=== PATIENT | male | born 1950 | race Caucasian/White ===

== ENCOUNTER 2021-04-04 13:03 | Emergency (ER) | payer MEDICARE, OTHER ==
[~2021-04-04] VITALS: Ht 193 cm; Wt 127.3 kg
[2021-04-04 13:26] VITALS: BP 124/62
== END 2021-04-04 15:19 | disposition left against medical advice (07) ==
LOC: ER 13:05
DX: U07.1 COVID-19 (principal); R53.1 Weakness; R53.83 Other fatigue; R11.0 Nausea; I10 Essential (primary) hypertension
CPT/HCPCS: 99281

== ENCOUNTER 2021-04-05 13:12 | Emergency (ER) | payer MEDICARE, OTHER ==
[~2021-04-05] VITALS: Ht 182.9 cm; Wt 127.3 kg
[2021-04-05] MEDS ORDERED: CASIRIVIMAB/IMDEVIMAB inject. 10 ML in normal saline 100ml IV soln 100 ML IV ONE (13:45)
[2021-04-05 14:27] LABS: BASOPHILS % (AUTO) 0.2 % (0-1); EOSINOPHILS % (AUTO) 0 % (0-6); HEMATOCRIT 46.3 % (42.0-52.0); HEMOGLOBIN 16.1 g/dl (14.0-17.9); LYMPHOCYTES % (AUTO) 17.5 % (21-51); MEAN CORPUSCULAR HEMOGLOBIN 29.8 PG (27.0-31.0); MEAN CORPUSCULAR HGB CONC 34.7 g/dL (33.0-36.5); MEAN PLATELET VOLUME 9.4 FL (7.4-10.4); MONOCYTES # (AUTO) 0.6 X10'3 (0-0.9); MONOCYTES % (AUTO) 10.6 % (2-12); NEUTROPHILS # (AUTO) 4.1 X10'3 (1.8-7.7); NEUTROPHILS % (AUTO) 71.7 % (42-75); PLATELET COUNT 106 X10'3 (140-440); RED BLOOD COUNT 5.38 X10'6 (4.70-6.10); RED CELL DISTRIBUTION WIDTH 13.9 % (11.5-14.5); WHITE BLOOD COUNT 5.7 X10'3 (4.5-11.0)
[2021-04-05 14:40] LABS: ALANINE AMINOTRANSFERASE 40 U/L (12-78); ALBUMIN 3.5 G/DL (3.4-5.0); ALBUMIN/GLOBULIN RATIO 0.9 (1.1-1.5); ALKALINE PHOSPHATASE 135 IU/L (46-116); ANION GAP 10 (8-16); ASPARTATE AMINO TRANSFERASE 38 U/L (10-37); BILIRUBIN,TOTAL 1.7 MG/DL (0.1-1.0); BLOOD UREA NITROGEN 21 MG/DL (7-18); BUN/CREATININE RATIO 16.9 (5.4-32.0); CALCIUM 7.7 MG/DL (8.5-10.1); CHLORIDE 101 MMOL/L (99-107); CREATININE 1.24 MG/DL (0.60-1.10); GLUCOSE 131 MG/DL (70-104); POTASSIUM 3.9 MMOL/L (3.5-5.1); SODIUM 133 MMOL/L (135-145); TOTAL CARBON DIOXIDE 22.3 MMOL/L (24-32); TOTAL PROTEIN 7.4 G/DL (6.4-8.2); eGFR 58 ML/MIN
[2021-04-05 14:59] VITALS: BP 132/75
[2021-04-06] MEDS ORDERED: NO HOME MEDS (03:19)
[2021-04-06] MEDS ORDERED: DEC4T PO (10:37)
== END 2021-04-05 15:13 | disposition home or self-care (01) ==
LOC: ER 13:13
DX: U07.1 COVID-19 (principal); R19.7 Diarrhea, unspecified; R53.83 Other fatigue; R06.02 Shortness of breath; R53.1 Weakness; R11.0 Nausea
CPT/HCPCS: 36415; 71045; 80053; 85025; 99284; M0243; Q0244

== ENCOUNTER 2021-04-06 00:28 | Inpatient (IN) | payer MEDICARE, OTHER ==
[~2021-04-06] VITALS: Ht 193 cm; Wt 138.0 kg
[2021-04-06] MEDS ORDERED: dexamethasone sod phosphate 10mg/ml inj IV STA (01:35)
[2021-04-06] MEDS ORDERED: acetaminophen 325mg tablet PO ONE (01:40)
[2021-04-06] MEDS ORDERED: magnesium Cl slow-release 64mg tablet PO PRN (02:40)
[2021-04-06] MEDS ORDERED: magnesium hydroxide 30ml (MOM) UD suspension PO PRN (02:40)
[2021-04-06] MEDS ORDERED: magnesium 2GM in 50ml NS 50 ML IV PRN (02:40)
[2021-04-06] MEDS ORDERED: potassium Cl 20 mEq SR tablet PO PRN ×2 (02:40)
[2021-04-06] MEDS ORDERED: mag hydrox/Alum hydrox/simeth 30ml oral suspension PO PRN (02:40)
[2021-04-06] MEDS ORDERED: acetaminophen 325mg tablet PO PRN ×2 (02:40)
[2021-04-06] MEDS ORDERED: LORazepam 1 MG tablet PO PRN (02:40)
[2021-04-06] MEDS ORDERED: LORazepam 2 mg/ml vial IV PRN (02:40)
[2021-04-06] MEDS ORDERED: magnesium 4gm in 100ml NS 100 ML IV PRN (02:40)
[2021-04-06] MEDS ORDERED: ondansetron/PF 4mg/2ml inj IV PRN (02:40)
[2021-04-06] MEDS ORDERED: potassium Cl 40MEQ/1/2NS 520ml 520 ML IV PRN ×2 (02:40)
[2021-04-06] MEDS ORDERED: NO HOME MEDS (03:19)
--- NOTE | 2021-04-06 03:25 | NUR ---
pt daughter alexandra called to check the patient her father she can be reached at [phone] her sister davina has the patients phone
[2021-04-06 05:19] VITALS: BP 122/65
--- NOTE | 2021-04-06 05:32 | NUR ---
report recieved from miguelito LEROY RN at 0440, patient arrives to unit at 0500 in [place]. skin check performed with nati gibson. no outstanding findings. patient is diaphoretci vss temp 97.5 122/65 68 16 100% on RA denies pain. patient is depressed and tired , falling asleep in mid interview. interview deferred for later . prior to dozing off patient given snacks, states that he has not eaten in three days. courtney mejia rn
[2021-04-06 07:00] VITALS: BP 131/78
[2021-04-06] MEDS: docusate sod 100mg capsule PO SCH ×2 (08:00→18:57)
[2021-04-06] MEDS: K and/or MAG REPLACEMENT MC SCH ×2 (08:00→19:07)
[2021-04-06] MEDS: dexamethasone 4mg/ml inj IV SCH ×3 (08:40→18:56)
--- NOTE | 2021-04-06 10:28 | NUR ---
Malnutrition consult: Pt reports 2-13 lb wt loss with decreased appetite per malnutrition risk screen with RN. No recent scaled wt hx in EMR, current scaled wt is 150% IBW. Pt currently on a regular diet, pending documentation of PO intake. Pt with no documented decrease in muscle strength or significant edema and appears well developed well nourished per ED report. Likely that pt with some changes in appetite/PO intake r/t COVID however currently lacks a minimum of two criteria for malnutrition. Will continue to follow. Addendum: 04/06/21 at [address] Amended: Links added.
[2021-04-06] MEDS ORDERED: DEC4T PO (10:37)
[2021-04-06 10:47] LABS: ALBUMIN 3.2 G/DL (3.4-5.0); ANION GAP 7 (8-16); BLOOD UREA NITROGEN 34 MG/DL (7-18); BUN/CREATININE RATIO 14.3 (5.4-32.0); CALCIUM 7.6 MG/DL (8.5-10.1); CHLORIDE 97 MMOL/L (99-107); CREATININE 2.38 MG/DL (0.60-1.10); GLUCOSE 208 MG/DL (70-104); POTASSIUM 3.8 MMOL/L (3.5-5.1); SODIUM 129 MMOL/L (135-145); TOTAL CARBON DIOXIDE 24.8 MMOL/L (24-32); eGFR 27 ML/MIN
--- NOTE | 2021-04-06 10:55 | NUR ---
PAGER ID: [phone] MESSAGE: Sondra [phone]- Bon Lin- he did not eat breakfast until late, has not yet received insulin. BS 230. Scheduled to recheck and treat at lunch 1200. Is it too late to admin insulin? Please advise, thanks
[2021-04-06 11:00] VITALS: BP 114/52
[2021-04-06 11:00] LABS: EOSINOPHILS % (AUTO) 0 % (0-6); HEMOGLOBIN 15.6 g/dl (14.0-17.9); PLATELET COUNT 101 X10'3 (140-440); RED CELL DISTRIBUTION WIDTH 14.2 % (11.5-14.5)
[2021-04-06 11:02] LABS: BASOPHILS % (AUTO) 0.3 % (0-1); LYMPHOCYTES # (AUTO) 1.1 X10'3 (1.1-4.8); LYMPHOCYTES % (AUTO) 13.5 % (21-51); MEAN CORPUSCULAR HEMOGLOBIN 30.5 PG (27.0-31.0); MEAN CORPUSCULAR HGB CONC 34.7 g/dL (33.0-36.5); MEAN CORPUSCULAR VOLUME 87.9 FL (78-98); MEAN PLATELET VOLUME 10.6 FL (7.4-10.4); MONOCYTES # (AUTO) 0.6 X10'3 (0-0.9); MONOCYTES % (AUTO) 6.8 % (2-12); NEUTROPHILS # (AUTO) 6.5 X10'3 (1.8-7.7); NEUTROPHILS % (AUTO) 79.4 % (42-75); RED BLOOD COUNT 5.12 X10'6 (4.70-6.10); WHITE BLOOD COUNT 8.1 X10'3 (4.5-11.0)
--- NOTE | 2021-04-06 13:45 | NUR ---
PAGER ID: [phone] MESSAGE: Sondra 8263Bon Rai- he and his family are appealing the discharge. MARI. Addendum: 04/06/21 at 1443 by Analy Molina RN spoke with daughter Sharon at length. Explained [facility] care dc appeal process and gave her the phone number to call. Explained why her father is being discharged. The family and the pt have expressed fears re dc because the pt was dc from [facility] then at home 2 days later. This was only day before yesterday. Sharon states they grieving and fearful to lose another parent so close together. I hung up the phone and Dr De Leon called back to say that she is holding the dc for now due to pt decreased kidney function. He will need IVF, and orders reflect this. I called Sharon to let her know and she is pleased with this. Will continue to monitor situation.
[2021-04-06 15:00] VITALS: BP 124/73
[2021-04-06] MEDS: normal saline 1000ml 1,000 ML IV SCH ×2 (15:25→23:41)
--- NOTE | 2021-04-06 15:54 | NUR ---
SENT PAGE PAGER ID: [phone] MESSAGE: CY Quezada, QUIANA DINORAH. SOME OF PT'S FAMILY SAYS HE USES PAP MACHINE AT HOME. PT HAD 1200 BLOOD SUGAR OF 194, ACHS ACCUCHECK ORDERS BUT NO HUMALOG ORDER OR AC1 RESULTS. THANK YOU. CHARLES Redman [id number]
--- NOTE | 2021-04-06 15:57 | NUR ---
PAGE SENT CY Quezada, QUIANA COPELAND, SOME PT'S FAMILY REPORTS THAT PT HAS A PAP MACHINE AT HOME. NOTIFIED. THANK YOU, CHARLES
[2021-04-06] MEDS ORDERED: MESSAGE TO PHARMACY PO ONE (16:10)
[2021-04-06] MEDS ORDERED: dextrose 50%-water 50ml dispensing syringe IV PRN ×2 (16:10)
[2021-04-06] MEDS ORDERED: glucagon, human recombinant 1mg kit SUBCUT PRN (16:10)
[2021-04-06] MEDS ORDERED: dextrose ORAL solution 15 GM/59 ML bottle PO PRN ×2 (16:10)
--- NOTE | 2021-04-06 18:00 | NUR ---
Patient in room COVID 04. I have received report from radames gibson and had the opportunity to ask questions and assume patient care.
--- NOTE | 2021-04-06 18:31 | NUR ---
Problems reprioritized. Patient report given, questions answered & plan of care reviewed with BUSHRA SARGENT.
[2021-04-06] MEDS: insulin Lispro (HumaLOG) vial - multi-dose SQ SCH (19:00)
[2021-04-06 20:00] VITALS: BP 152/42
[2021-04-06] MEDS ORDERED: insulin glargine (Lantus) pen - multi-dose SQ SCH (21:00)
[2021-04-06] MEDS ORDERED: temazepam 15mg capsule PO PRN (21:00)
[2021-04-06 22:00] VITALS: BP 127/62
--- NOTE | 2021-04-06 23:53 | NUR ---
patient reports that he takes clindaymcin 300mg three times a day at home, prescribed by his dentist. patient reports that he takes hctz 20mg/12.5mg. will notify
[2021-04-07 02:00] VITALS: BP 136/72
--- NOTE | 2021-04-07 04:54 | NUR ---
MD Kingsley notified that patient states that he is taking hctz 20-12.5mg at home for blood pressure once a day. recent bp 156/89mmHg at 0300. also notified that patient is requesting eye drops and pain medication stronger for his back pain caused by past injuries. patient staes that he takes norcos and oxys at home. MD conti states that patient is stable on room air and should be discharged soon. Md states to endorse to daytime MD De Leon. patient made aware. verbalizes understanding
[2021-04-07 08:14] LABS: BASOPHILS % (AUTO) 0 % (0-1); EOSINOPHILS % (AUTO) 0 % (0-6); HEMATOCRIT 43.8 % (42.0-52.0); LYMPHOCYTES # (AUTO) 1.1 X10'3 (1.1-4.8); LYMPHOCYTES % (AUTO) 13.1 % (21-51); MEAN CORPUSCULAR HEMOGLOBIN 29.8 PG (27.0-31.0); MEAN CORPUSCULAR HGB CONC 34.1 g/dL (33.0-36.5); MEAN CORPUSCULAR VOLUME 87.2 FL (78-98); MEAN PLATELET VOLUME 10.6 FL (7.4-10.4); MONOCYTES # (AUTO) 0.5 X10'3 (0-0.9); MONOCYTES % (AUTO) 5.9 % (2-12); NEUTROPHILS # (AUTO) 6.9 X10'3 (1.8-7.7); PLATELET COUNT 126 X10'3 (140-440); RED BLOOD COUNT 5.03 X10'6 (4.70-6.10); WHITE BLOOD COUNT 8.5 X10'3 (4.5-11.0)
[2021-04-07 08:22] VITALS: BP 142/78
[2021-04-07 08:38] LABS: ALANINE AMINOTRANSFERASE 37 U/L (12-78); ALBUMIN 2.9 G/DL (3.4-5.0); ALBUMIN/GLOBULIN RATIO 0.8 (1.1-1.5); ALKALINE PHOSPHATASE 116 IU/L (46-116); ANION GAP 8 (8-16); ASPARTATE AMINO TRANSFERASE 42 U/L (10-37); BILIRUBIN,TOTAL 0.9 MG/DL (0.1-1.0); BLOOD UREA NITROGEN 27 MG/DL (7-18); BUN/CREATININE RATIO 22.3 (5.4-32.0); CALCIUM 8.1 MG/DL (8.5-10.1); CHLORIDE 104 MMOL/L (99-107); CREATININE 1.21 MG/DL (0.60-1.10); GLUCOSE 180 MG/DL (70-104); MAGNESIUM 2.6 MG/DL (1.5-2.4); POTASSIUM 3.9 MMOL/L (3.5-5.1); SODIUM 137 MMOL/L (135-145); TOTAL CARBON DIOXIDE 25.2 MMOL/L (24-32); TOTAL PROTEIN 6.6 G/DL (6.4-8.2); eGFR 59 ML/MIN
[2021-04-07] MEDS: dexamethasone 4mg/ml inj IV SCH (09:06)
[2021-04-07] MEDS: docusate sod 100mg capsule PO SCH (09:07)
[2021-04-07] MEDS: insulin Lispro (HumaLOG) vial - multi-dose SQ SCH (09:12)
[2021-04-07 11:47] VITALS: BP 142/78
--- NOTE | 2021-04-07 14:13 | NUR ---
PAGER ID: [phone] MESSAGE: Damien HerronBon His A1C is 6.3. He needs a scrip for Glucometer, lancets, and strips. Yelitza [id number]
== END 2021-04-07 15:52 | disposition home or self-care (01) | DRG 177 ==
LOC: ER 00:28 → COVID IP 02:43
PROVIDERS: ADMIT Internal Medicine; ATTEND Internal Medicine
DX: U07.1 COVID-19 (principal); N17.0 Acute kidney failure with tubular necrosis; R74.8 Abnormal levels of other serum enzymes; D69.6 Thrombocytopenia, unspecified; I12.9 Hypertensive chronic kidney disease with stage 1 through stage 4 chronic kidney disease, or unspecified chronic kidney disease; N18.30 Chronic kidney disease, stage 3 unspecified
CPT/HCPCS: 36415; 71045; 80048; 80053; 82948; 83036; 83605; 83735; 85025; 85610; 87040; 87081; 96374; 97110; 97161; 97530; 99281; 99284; 99285; G0378; J1100; J1815; J7030; M0243; Q0244

== ENCOUNTER 2021-04-09 02:39 | Emergency (ER) | payer MEDICARE, OTHER ==
[~2021-04-09] VITALS: Ht 193 cm; Wt 123.6 kg
[~2021-04-09 02:39] MED LIST: DEC4T PO
[2021-04-09] MEDS ORDERED: DEXA6TAB6 PO ×3 (02:56→02:58)
[2021-04-09] MEDS ORDERED: dexamethasone sod phosphate 10mg/ml inj IV STA (03:07)
[2021-04-09] MEDS ORDERED: aspirin 81mg tab.chew PO ONE (03:10)
[2021-04-09] MEDS ORDERED: CASIRIVIMAB/IMDEVIMAB inject. 10 ML in normal saline 100ml IV soln 100 ML IV ONE (03:10)
--- NOTE | 2021-04-09 03:14 | NUR ---
pt reports feeling depressed after losing his last week. He feels guilty, denies SI, reports feeling very dipressed, he has a good support system but has not sought any counceling, he reports not taking care of himself at home and is not compliant with medicaitons
[2021-04-09 03:17] LABS: BASOPHILS % (AUTO) 0.1 % (0-1); EOSINOPHILS % (AUTO) 0 % (0-6); HEMATOCRIT 44.3 % (42.0-52.0); HEMOGLOBIN 15.2 g/dl (14.0-17.9); LYMPHOCYTES # (AUTO) 0.9 X10'3 (1.1-4.8); LYMPHOCYTES % (AUTO) 12.1 % (21-51); MEAN CORPUSCULAR HEMOGLOBIN 29.6 PG (27.0-31.0); MEAN CORPUSCULAR HGB CONC 34.3 g/dL (33.0-36.5); MEAN CORPUSCULAR VOLUME 86.3 FL (78-98); MEAN PLATELET VOLUME 9.9 FL (7.4-10.4); MONOCYTES # (AUTO) 0.6 X10'3 (0-0.9); MONOCYTES % (AUTO) 7.7 % (2-12); NEUTROPHILS # (AUTO) 6.1 X10'3 (1.8-7.7); NEUTROPHILS % (AUTO) 80.1 % (42-75); PLATELET COUNT 169 X10'3 (140-440); RED BLOOD COUNT 5.13 X10'6 (4.70-6.10); RED CELL DISTRIBUTION WIDTH 13.8 % (11.5-14.5); WHITE BLOOD COUNT 7.6 X10'3 (4.5-11.0)
[2021-04-09 03:25] LABS: D-DIMER 0.33 MG/L FEU (0-0.50)
[2021-04-09 03:33] LABS: ALANINE AMINOTRANSFERASE 159 U/L (12-78); ALBUMIN 3.1 G/DL (3.4-5.0); ALBUMIN/GLOBULIN RATIO 0.8 (1.1-1.5); ALKALINE PHOSPHATASE 108 IU/L (46-116); ANION GAP 7 (8-16); ASPARTATE AMINO TRANSFERASE 118 U/L (10-37); BLOOD UREA NITROGEN 24 MG/DL (7-18); BUN/CREATININE RATIO 23.3 (5.4-32.0); CALCIUM 8.1 MG/DL (8.5-10.1); CHLORIDE 104 MMOL/L (99-107); CREATININE 1.03 MG/DL (0.60-1.10); GLUCOSE 162 MG/DL (70-104); SODIUM 137 MMOL/L (135-145); TOTAL CARBON DIOXIDE 25.7 MMOL/L (24-32); TOTAL PROTEIN 6.8 G/DL (6.4-8.2); eGFR 72 ML/MIN
[2021-04-09 03:36] LABS: MAGNESIUM 2.5 MG/DL (1.5-2.4); TROPONIN I < 0.04 NG/ML (0.0-0.05)
[2021-04-09 05:08] VITALS: BP 117/64
== END 2021-04-09 05:00 | disposition home or self-care (01) ==
LOC: ER 02:39
DX: U07.1 COVID-19 (principal); J12.82 Pneumonia due to coronavirus disease 2019; I10 Essential (primary) hypertension; Z79.899 Other long term (current) drug therapy
CPT/HCPCS: 36415; 71045; 80053; 83735; 83880; 84484; 85025; 85379; 93005; 99285; M0243; Q0244

== ENCOUNTER 2021-05-09 12:21 | Inpatient (IN) | payer MEDICARE, OTHER ==
[~2021-05-09] VITALS: Ht 193 cm; Wt 122.7 kg
[~2021-05-09 12:21] MED LIST changes: -DEC4T PO; +DEXA6TAB6 PO
[2021-05-09 12:57] LABS: BASOPHILS # (AUTO) 0.1 X10'3 (0-0.2); LYMPHOCYTES # (AUTO) 2.4 X10'3 (1.1-4.8); MEAN CORPUSCULAR HEMOGLOBIN 29.5 PG (27.0-31.0); MONOCYTES # (AUTO) 0.5 X10'3 (0-0.9); WHITE BLOOD COUNT 6.4 X10'3 (4.5-11.0)
[2021-05-09 12:58] LABS: BASOPHILS % (AUTO) 1.4 % (0-1); EOSINOPHILS # (AUTO) 0.1 X10'3 (0-0.9); EOSINOPHILS % (AUTO) 0.9 % (0-6); HEMOGLOBIN 13.7 g/dl (14.0-17.9); MEAN CORPUSCULAR HGB CONC 33.4 g/dL (33.0-36.5); MEAN CORPUSCULAR VOLUME 88.3 FL (78-98); MEAN PLATELET VOLUME 9.2 FL (7.4-10.4); MONOCYTES % (AUTO) 7.6 % (2-12); NEUTROPHILS # (AUTO) 3.4 X10'3 (1.8-7.7); NEUTROPHILS % (AUTO) 53.1 % (42-75); PLATELET COUNT 231 X10'3 (140-440); RED BLOOD COUNT 4.64 X10'6 (4.70-6.10); RED CELL DISTRIBUTION WIDTH 14.7 % (11.5-14.5)
[2021-05-09 13:01] LABS: ALANINE AMINOTRANSFERASE 48 U/L (12-78); ALBUMIN 3.4 G/DL (3.4-5.0); ALBUMIN/GLOBULIN RATIO 0.9 (1.1-1.5); ALKALINE PHOSPHATASE 135 IU/L (46-116); ANION GAP 11 (8-16); ASPARTATE AMINO TRANSFERASE 29 U/L (10-37); BILIRUBIN,TOTAL 2.4 MG/DL (0.1-1.0); BLOOD UREA NITROGEN 16 MG/DL (7-18); BUN/CREATININE RATIO 9.1 (5.4-32.0); CHLORIDE 107 MMOL/L (99-107); CREATININE 1.75 MG/DL (0.60-1.10); GLUCOSE 154 MG/DL (70-104); POTASSIUM 3.3 MMOL/L (3.5-5.1); SODIUM 143 MMOL/L (135-145); TOTAL CARBON DIOXIDE 25.1 MMOL/L (24-32); TOTAL PROTEIN 7.3 G/DL (6.4-8.2); eGFR 39 ML/MIN
[2021-05-09] MEDS: aspirin 81mg tab.chew PO ONE ×2 (13:02→15:23)
[2021-05-09] MEDS ORDERED: etomidate 2mg/ml inj. IV ONE (13:05)
[2021-05-09] MEDS ORDERED: iohexol 350MG/ML 100ml bottle IV ONE (13:25)
[2021-05-09] MEDS ORDERED: enoxaparin 100mg/ml syringe SUBCUT ONE (13:50)
[2021-05-09] MEDS ORDERED: metoprolol tartrate 1mg/ml inj IV ONE (13:50)
[2021-05-09] MEDS ORDERED: normal saline 1000ML IV soln IVB ONE (14:05)
[2021-05-09] MEDS ORDERED: LISI1TAB51 PO (14:40)
[2021-05-09] MEDS ORDERED: ASPI-611 PO (14:40)
[2021-05-09] MEDS ORDERED: diltiazem 5mg/ml 5ml inj. IV ONE (14:40)
[2021-05-09] MEDS: diltiazem-NS 100mg/100ml 100 ML IV SCH (15:23)
[2021-05-09] MEDS ORDERED: potassium Cl 40MEQ/1/2NS 520ml 520 ML IV PRN ×2 (16:35)
[2021-05-09] MEDS ORDERED: magnesium Cl slow-release 64mg tablet PO PRN (16:35)
[2021-05-09] MEDS ORDERED: magnesium 4gm in 100ml NS 100 ML IV PRN (16:35)
[2021-05-09] MEDS ORDERED: HYDROcodone/acetaminophen 5mg/325mg tablet PO PRN (16:35)
[2021-05-09] MEDS ORDERED: magnesium 2GM in 50ml NS 50 ML IV PRN (16:35)
[2021-05-09] MEDS ORDERED: ondansetron/PF 4mg/2ml inj IV PRN (16:35)
[2021-05-09] MEDS ORDERED: acetaminophen 325mg tablet PO PRN ×2 (16:35)
[2021-05-09] MEDS ORDERED: diltiazem-D5W 125mg/125ml 125 ML IV SCH (16:35)
[2021-05-09] MEDS ORDERED: bisacodyl 10mg suppository rectal RC PRN (16:35)
[2021-05-09] MEDS ORDERED: morphine 2 MG/ML inj. syringe IV PRN ×2 (16:35)
[2021-05-09] MEDS ORDERED: potassium Cl 20 mEq SR tablet PO PRN (16:35)
[2021-05-09] MEDS ORDERED: mag hydrox/Alum hydrox/simeth 30ml oral suspension PO PRN (16:35)
[2021-05-09] MEDS ORDERED: diphenhydrAMINE 25mg capsule PO PRN (16:35)
[2021-05-09] MEDS ORDERED: magnesium hydroxide 30ml (MOM) UD suspension PO PRN (16:35)
[2021-05-09] MEDS ORDERED: acetaminophen 650mg rectal suppository RC PRN (16:35)
[2021-05-09] MEDS: normal saline 1000ml 1,000 ML IV SCH ×2 (17:16→20:27)
[2021-05-09] MEDS: K and/or MAG REPLACEMENT MC SCH (20:00)
[2021-05-09] MEDS: docusate sod 100mg capsule PO SCH (20:25)
[2021-05-09] MEDS: enoxaparin 100mg/ml syringe SUBCUT SCH (20:26)
--- NOTE | 2021-05-09 20:31 | NUR ---
Patient in room ED 2. I have received report from [employer] and had the opportunity to ask questions waiting for pt to arrive on unit
[2021-05-09] MEDS: potassium Cl 20 mEq SR tablet PO PRN (21:59)
[2021-05-09 22:00] VITALS: BP 111/62
[2021-05-10 00:45] VITALS: BP 107/61
--- NOTE | 2021-05-10 01:38 | NUR ---
PT went back into normal sinus rhythm at 1245, Dr guaman notified, said to keep him on Cardizem drip. VS: 71, 96%, , /.
[2021-05-10 01:45] LABS: BASOPHILS % (AUTO) 0.8 % (0-1); EOSINOPHILS # (AUTO) 0.1 X10'3 (0-0.9); EOSINOPHILS % (AUTO) 1.6 % (0-6); HEMATOCRIT 34.6 % (42.0-52.0); HEMOGLOBIN 12.1 g/dl (14.0-17.9); LYMPHOCYTES # (AUTO) 1.9 X10'3 (1.1-4.8); LYMPHOCYTES % (AUTO) 43.1 % (21-51); MEAN CORPUSCULAR HEMOGLOBIN 30.1 PG (27.0-31.0); MEAN CORPUSCULAR HGB CONC 34.8 g/dL (33.0-36.5); MEAN CORPUSCULAR VOLUME 86.4 FL (78-98); MEAN PLATELET VOLUME 8.8 FL (7.4-10.4); MONOCYTES # (AUTO) 0.4 X10'3 (0-0.9); MONOCYTES % (AUTO) 8.8 % (2-12); NEUTROPHILS % (AUTO) 45.7 % (42-75); PLATELET COUNT 158 X10'3 (140-440); RED BLOOD COUNT 4.01 X10'6 (4.70-6.10); RED CELL DISTRIBUTION WIDTH 14.6 % (11.5-14.5); WHITE BLOOD COUNT 4.4 X10'3 (4.5-11.0)
[2021-05-10 02:00] VITALS: BP 104/73
[2021-05-10 02:00] LABS: ALANINE AMINOTRANSFERASE 35 U/L (12-78); ALBUMIN 2.8 G/DL (3.4-5.0); ALBUMIN/GLOBULIN RATIO 0.8 (1.1-1.5); ALKALINE PHOSPHATASE 113 IU/L (46-116); ANION GAP 10 (8-16); ASPARTATE AMINO TRANSFERASE 23 U/L (10-37); BILIRUBIN,TOTAL 1.3 MG/DL (0.1-1.0); BLOOD UREA NITROGEN 13 MG/DL (7-18); BUN/CREATININE RATIO 11.5 (5.4-32.0); CALCIUM 8.1 MG/DL (8.5-10.1); CHLORIDE 109 MMOL/L (99-107); CREATININE 1.13 MG/DL (0.60-1.10); GLUCOSE 100 MG/DL (70-104); POTASSIUM 3.4 MMOL/L (3.5-5.1); SODIUM 143 MMOL/L (135-145); TOTAL CARBON DIOXIDE 24.4 MMOL/L (24-32); TOTAL PROTEIN 6.1 G/DL (6.4-8.2); eGFR 64 ML/MIN
[2021-05-10 02:03] LABS: CHOL/HDL RATIO 5.3 (0.00-4.99); CHOLESTEROL 179 MG/DL (0-200); HDL CHOLESTEROL 34 MG/DL (35-60); LDL CHOLESTEROL 125 MG/DL (50-100); MAGNESIUM 1.9 MG/DL (1.5-2.4); PHOSPHORUS 3.4 MG/DL (2.3-4.5); TRIGLYCERIDES 127 MG/DL (20-135)
--- NOTE | 2021-05-10 03:38 | NUR ---
Sent pharm message about needing Cardizem
[2021-05-10] MEDS: diltiazem-NS 100mg/100ml 100 ML IV SCH (04:30)
--- NOTE | 2021-05-10 06:46 | NUR ---
Problems reprioritized. Patient report given, questions answered & plan of care reviewed with Georgette.
[2021-05-10 07:36] VITALS: BP 118/68
[2021-05-10] MEDS: K and/or MAG REPLACEMENT MC SCH ×2 (08:00→20:00)
[2021-05-10] MEDS: HYDROchlorothiazide 12.5mg capsule PO SCH (09:11)
[2021-05-10] MEDS: aspirin 81mg, enteric-coated 1 TAB TABLET.DR PO SCH (09:11)
[2021-05-10] MEDS: docusate sod 100mg capsule PO SCH ×2 (09:11→20:00)
[2021-05-10] MEDS: potassium Cl 20 mEq SR tablet PO PRN ×3 (09:13→21:11)
[2021-05-10] MEDS: lisinopril 20mg tablet PO SCH (09:13)
[2021-05-10] MEDS: enoxaparin 100mg/ml syringe SUBCUT SCH ×2 (09:16→21:21)
[2021-05-10] MEDS: diltiazem CD 120mg capsule (once-daily) PO SCH (09:54)
[2021-05-10 11:00] VITALS: BP 124/63
--- NOTE | 2021-05-10 11:54 | NUR ---
Patient in room PCU 3028. I have received report from Christal TOMLINSON and had the opportunity to ask questions and assume patient care. Pt supine in bed, no sob, HR stable in 70's. NSR. safety measures in place. no s/sx acute distress.
[2021-05-10 15:00] VITALS: BP 138/72
[2021-05-10] MEDS ORDERED: midazolam 1 mg/ML 2ml injection ONE (15:44)
[2021-05-10] MEDS ORDERED: fentaNYL /PF 50mcg/ml 5ml ampule ONE (15:44)
[2021-05-10] MEDS ORDERED: rocuronium 10mg/ml inj IV ONE ×2 (16:06→16:32)
[2021-05-10] MEDS ORDERED: ondansetron/PF 4mg/2ml inj ONE (16:07)
[2021-05-10] MEDS ORDERED: dexamethasone sod phosphate 4mg/ml inj. ONE (16:07)
--- NOTE | 2021-05-10 18:19 | NUR ---
Student documentation: I have reviewed and agree with all interventions, assessments performed and documented by Caitlyn TOMLINSON. Student Medication Administration: For this medication-pass time frame, all medication were reviewed, dispensed, administered and documented per hospital policy by Caitlyn TOMLINSON.
--- NOTE | 2021-05-10 18:26 | NUR ---
Patient in room PCU 3028. I have received report from Rena TOMLINSON and had the opportunity to ask questions and assume patient care.
--- NOTE | 2021-05-10 18:51 | NUR ---
Problems reprioritized. Patient report given, questions answered & plan of care reviewed with Salina TOMLINSON. pt semi fowlers in bed. no s/sx acute distress
[2021-05-10] MEDS ORDERED: regadenoson 0.4mg/5ml syringe IV PRN (19:50)
[2021-05-10] MEDS ORDERED: aminophylline 250mg/10ml inj. IV PRN (19:50)
[2021-05-10] MEDS ORDERED: nitroGLYCERIN 0.4mg SUBLingual tab SL PRN (19:50)
[2021-05-10] MEDS ORDERED: metoprolol tartrate 1mg/ml inj IV PRN (19:50)
[2021-05-10] MEDS: atorvastatin 20mg tablet PO SCH (21:20)
[2021-05-10] MEDS: HYDROcodone/acetaminophen 10/325mg tab PO PRN (21:22)
[2021-05-11] VITALS (10 sets, daily range): BP systolic 108–133; BP diastolic 64–75
[2021-05-11 01:42] LABS: CLARITY,URINE CLEAR (Clear); COLOR,URINE YELLOW (Yellow); UA COLLECTION TYPE VOIDED
[2021-05-11 01:43] LABS: GLUCOSE, URINE NEGATIVE (Neg); KETONES,URINE NEGATIVE (Neg); LEUKOCYTE ESTERASE ,URINE NEGATIVE (Neg); NITRITES, URINE NEGATIVE (Neg); OCCULT BLOOD,URINE NEGATIVE (Neg); PROTEIN,URINE NEGATIVE (Neg); UROBILINOGEN,URINE 0.2 E.U/dL (0.2-1.0)
[2021-05-11 01:44] LABS: URINE AMPHETAMINE SCREEN POSITIVE (Neg); URINE BARBITUATE SCREEN NEGATIVE (Neg); URINE BENZODIAZEPINES SCREEN NEGATIVE (Neg); URINE CANNABINOID SCREEN POSITIVE (Neg); URINE COCAINE SCREEN NEGATIVE (Neg); URINE METHADONE SCREEN NEGATIVE (Neg); URINE OPIATE SCREEN NEGATIVE (Neg); URINE PHENCYCLIDINE SCREEN NEGATIVE (Neg)
[2021-05-11] MEDS: HYDROcodone/acetaminophen 10/325mg tab PO PRN (04:23)
--- NOTE | 2021-05-11 07:02 | NUR ---
Patient in room PCU 3028. I have received report from Salina TOMLINSON and had the opportunity to ask questions and assume patient care. Pt left side lying in bed, chest rising and falling evenly. safety measures in place. IV patent, normal saline running. no s/sx acute distress. HR sinus rhythm.
[2021-05-11 07:03] LABS: D-DIMER 0.29 MG/L FEU (0-0.50)
[2021-05-11 07:05] LABS: BASOPHILS % (AUTO) 0.4 % (0-1); EOSINOPHILS # (AUTO) 0.1 X10'3 (0-0.9); EOSINOPHILS % (AUTO) 1.6 % (0-6); HEMATOCRIT 36.3 % (42.0-52.0); HEMOGLOBIN 12.5 g/dl (14.0-17.9); LYMPHOCYTES # (AUTO) 1.6 X10'3 (1.1-4.8); LYMPHOCYTES % (AUTO) 45.6 % (21-51); MEAN CORPUSCULAR HGB CONC 34.5 g/dL (33.0-36.5); MEAN CORPUSCULAR VOLUME 87.1 FL (78-98); MEAN PLATELET VOLUME 8.8 FL (7.4-10.4); MONOCYTES # (AUTO) 0.3 X10'3 (0-0.9); NEUTROPHILS # (AUTO) 1.5 X10'3 (1.8-7.7); NEUTROPHILS % (AUTO) 43.4 % (42-75); PLATELET COUNT 151 X10'3 (140-440); RED BLOOD COUNT 4.16 X10'6 (4.70-6.10); RED CELL DISTRIBUTION WIDTH 14.6 % (11.5-14.5); WHITE BLOOD COUNT 3.5 X10'3 (4.5-11.0)
[2021-05-11 07:34] LABS: ALANINE AMINOTRANSFERASE 34 U/L (12-78); ALBUMIN 2.8 G/DL (3.4-5.0); ALBUMIN/GLOBULIN RATIO 0.8 (1.1-1.5); ALKALINE PHOSPHATASE 111 IU/L (46-116); ANION GAP 10 (8-16); ASPARTATE AMINO TRANSFERASE 22 U/L (10-37); BILIRUBIN,TOTAL 1.4 MG/DL (0.1-1.0); BLOOD UREA NITROGEN 10 MG/DL (7-18); BUN/CREATININE RATIO 10.3 (5.4-32.0); C-REACTIVE PROTEIN 0.19 MG/DL (0.0-0.5); CALCIUM 8.4 MG/DL (8.5-10.1); CHLORIDE 106 MMOL/L (99-107); CREATININE 0.97 MG/DL (0.60-1.10); GLUCOSE 100 MG/DL (70-104); LACTATE DEHYDROGENASE 209 U/L (85-227); MAGNESIUM 1.9 MG/DL (1.5-2.4); POTASSIUM 3.8 MMOL/L (3.5-5.1); SODIUM 141 MMOL/L (135-145); TOTAL PROTEIN 6.2 G/DL (6.4-8.2); eGFR 77 ML/MIN
--- NOTE | 2021-05-11 08:12 | NUR ---
Problems reprioritized. Patient report given, questions answered & plan of care reviewed with Rena TOMLINSON.
--- NOTE | 2021-05-11 09:56 | NUR ---
Pt left for heart cath at 0840. will give scheduled meds upon return.
[2021-05-11] MEDS ORDERED: FLU VACC QS2021-22(6MOS UP)/PF 60 MCG/0.5 ML SYRINGE IM ONE (10:00)
--- NOTE | 2021-05-11 10:05 | NUR ---
pt returned from heart cath. VS stable. no sob. no s/sx acute distress.
[2021-05-11] MEDS ORDERED: ATOR20TA66 PO (11:16)
[2021-05-11] MEDS: aspirin 81mg, enteric-coated 1 TAB TABLET.DR PO SCH (11:18)
[2021-05-11] MEDS: diltiazem CD 120mg capsule (once-daily) PO SCH (11:18)
[2021-05-11] MEDS: HYDROchlorothiazide 12.5mg capsule PO SCH (11:18)
[2021-05-11] MEDS: docusate sod 100mg capsule PO SCH (11:18)
[2021-05-11] MEDS: atorvastatin 20mg tablet PO SCH (11:18)
[2021-05-11] MEDS: enoxaparin 100mg/ml syringe SUBCUT SCH (11:20)
[2021-05-11] MEDS: lisinopril 20mg tablet PO SCH (11:21)
[2021-05-11] MEDS ORDERED: APIX5TAB3 PO (11:29)
[2021-05-11] MEDS ORDERED: CARCD120C PO (11:38)
--- NOTE | 2021-05-11 11:45 | NUR ---
Pt stable for discharge per Dr. Cantrell discharge orders. Pt notified that Dr. Marse wanting him to stay for more evaluation for his heart. Pt declined to stay. "i have to go to my 's . it is at 2PM. i am leaving. do you want me to take this IV out myself?" reiterated pt pt that the insulation blanket maker is wanting to complete cardiac intervention. Pt again verbalized intent to leave immediately. pt rights respected. PIV discontinued. cannula intact. active directory engineer discontinued. new Rx escripted to [facility]. Discharge instructions explained to pt and his grandson Vladimir. All questions answered. reiterated to pt he must go see PCP and insulation blanket maker Severo. Pt agreed and stated he has an appointment already made with his PCP Dr. Oliiva. Pt ambulated to the [facility] where he left in a private vehicle.
== END 2021-05-11 11:45 | disposition home or self-care (01) | DRG 282 ==
LOC: ER 12:22 → ED HOLD 16:39 → PCU 3S 20:55
PROVIDERS: ADMIT Family Medicine; ATTEND Family Medicine
PROC: B32T1ZZ Computerized Tomography (CT Scan) of Left Pulmonary Artery using Low Osmolar Contrast (ICD-10-PCS; 2021-05-09)
PROC: B3201ZZ Computerized Tomography (CT Scan) of Thoracic Aorta using Low Osmolar Contrast (ICD-10-PCS; 2021-05-09)
PROC: B32S1ZZ Computerized Tomography (CT Scan) of Right Pulmonary Artery using Low Osmolar Contrast (ICD-10-PCS; 2021-05-09)
PROC: 3E02340 Introduction of Influenza Vaccine into Muscle, Percutaneous Approach (ICD-10-PCS; principal; 2021-05-11)
PROC: 4A02XM4 Measurement of Cardiac Total Activity, External Approach (ICD-10-PCS; 2021-05-11)
PROC: 3E073KZ Introduction of Other Diagnostic Substance into Coronary Artery, Percutaneous Approach (ICD-10-PCS; 2021-05-11)
DX: I48.91 Unspecified atrial fibrillation (principal); I21.A1 Myocardial infarction type 2; R55 Syncope and collapse; I10 Essential (primary) hypertension; Z79.01 Long term (current) use of anticoagulants; Z79.82 Long term (current) use of aspirin; Z79.899 Other long term (current) drug therapy; Z86.16 Personal history of COVID-19; Z23 Encounter for immunization
CPT/HCPCS: 36415; 70450; 71045; 71275; 78452; 80053; 80061; 80305; 81003; 83615; 83735; 83880; 84100; 84484; 85025; 85379; 86140; 87081; 93005; 93017; 93306; 96361; 96372; 96374; 96375; 99285; A9500; G0378; J1100; J1650; J2250; J2405; J2785; J3010; J3490; J7030; Q9967

== ENCOUNTER 2022-03-21 09:57 | Emergency (ER) | payer MEDICARE, OTHER ==
[~2022-03-21] VITALS: Ht 193 cm; Wt 118.2 kg
[~2022-03-21 09:57] MED LIST changes: +APIX5TAB3 PO; +ASPI-611 PO; +ATOR20TA66 PO; +CARCD120C PO; -DEXA6TAB6 PO; +LISI1TAB51 PO
[2022-03-21] MEDS ORDERED: aspirin 81mg tab.chew PO ONE (10:15)
[2022-03-21] MEDS: nitroGLYCERIN 0.4mg SUBLingual tab SL PRN ×2 (10:20→10:33)
--- NOTE | 2022-03-21 10:20 | NUR ---
Pt connected to color television console monitor for further observation.
--- NOTE | 2022-03-21 10:30 | NUR ---
Pt rates cp 2-3 on pain scale.
--- NOTE | 2022-03-21 10:41 | NUR ---
Pt denies cp at this time.
[2022-03-21 10:50] LABS: BASOPHILS % (AUTO) 0.3 % (0-1); EOSINOPHILS # (AUTO) 0.1 X10'3 (0-0.9); HEMOGLOBIN 14.8 g/dl (14.0-17.9); LYMPHOCYTES # (AUTO) 1.6 X10'3 (1.1-4.8); LYMPHOCYTES % (AUTO) 31.4 % (21-51); MEAN CORPUSCULAR HEMOGLOBIN 30.4 PG (27.0-31.0); MEAN CORPUSCULAR HGB CONC 34.4 g/dL (33.0-36.5); MEAN CORPUSCULAR VOLUME 88.3 FL (78-98); MEAN PLATELET VOLUME 8.8 FL (7.4-10.4); MONOCYTES # (AUTO) 0.3 X10'3 (0-0.9); MONOCYTES % (AUTO) 6.6 % (2-12); NEUTROPHILS # (AUTO) 3.1 X10'3 (1.8-7.7); NEUTROPHILS % (AUTO) 60.7 % (42-75); PLATELET COUNT 132 X10'3 (140-440); RED BLOOD COUNT 4.87 X10'6 (4.70-6.10); RED CELL DISTRIBUTION WIDTH 14.4 % (11.5-14.5); WHITE BLOOD COUNT 5.1 X10'3 (4.5-11.0)
[2022-03-21 10:51] LABS: ALANINE AMINOTRANSFERASE 32 U/L (12-78); ALBUMIN 3.8 G/DL (3.4-5.0); ALBUMIN/GLOBULIN RATIO 1.1 (1.1-1.5); ALKALINE PHOSPHATASE 81 IU/L (46-116); ANION GAP 7 (8-16); ASPARTATE AMINO TRANSFERASE 21 U/L (10-37); BILIRUBIN,TOTAL 2.1 MG/DL (0.1-1.0); BLOOD UREA NITROGEN 17 MG/DL (7-18); BUN/CREATININE RATIO 15.2 (5.4-32.0); CALCIUM 8.7 MG/DL (8.5-10.1); CHLORIDE 105 MMOL/L (99-107); CREATININE 1.12 MG/DL (0.60-1.10); GLUCOSE 135 MG/DL (70-104); SODIUM 141 MMOL/L (135-145); TOTAL CARBON DIOXIDE 28.8 MMOL/L (24-32); TOTAL PROTEIN 7.2 G/DL (6.4-8.2); eGFR 65 ML/MIN
--- NOTE | 2022-03-21 11:10 | NUR ---
Pt denies cp at this time but c/o being ''nauseaded''. Pt in no acute distress, no sign of active vomiting noted.
[2022-03-21] MEDS ORDERED: ondansetron/PF 4mg/2ml inj IV ONE (11:50)
[2022-03-21] MEDS ORDERED: aspirin 325mg tablet PO ONE (11:50)
[2022-03-21] MEDS ORDERED: normal saline 1000ML IV soln IVB ONE (11:50)
[2022-03-21] MEDS ORDERED: meclizine 12.5mg tablet PO ONE (12:25)
[2022-03-21] MEDS ORDERED: MECL-159 PO (14:01)
--- NOTE | 2022-03-21 14:24 | NUR ---
PT IS UP FOR DC, NOTED THAT HIS HR WAS IN LOW 40'S AND BP 143/80. PROVIDER NOTIFIED. REQUESTED A GAIT TEST FOR HR AND O2 SATS
--- NOTE | 2022-03-21 14:26 | NUR ---
Pt sleeping but easily aroused ,continues to be monitored, denies cp, or other sx.
--- NOTE | 2022-03-21 14:55 | NUR ---
Pt pt d/c home via ambulatory with a steady gait, instructions given.
[2022-03-21 14:56] VITALS: BP 143/80
== END 2022-03-21 15:00 | disposition home or self-care (01) ==
LOC: ER 09:57
DX: R42 Dizziness and giddiness (principal); Z20.822 Contact with and (suspected) exposure to COVID-19; I10 Essential (primary) hypertension
CPT/HCPCS: 36415; 71045; 80053; 83880; 84484; 85025; 87635; 93005; 96361; 96374; 99285; C9803; J2405; J7030; J8597; A4615

== ENCOUNTER 2023-08-21 03:53 | Emergency (ER) | payer MEDICARE ==
[~2023-08-21] VITALS: Ht 193 cm; Wt 136.4 kg
[~2023-08-21 03:53] MED LIST changes: +MECL-302 PO
[2023-08-21 03:57] VITALS: TEMP 98.2
[2023-08-21] MEDS ORDERED: HYDROcodone/acetaminophen 10/325mg tab PO ONE (10:35)
[2023-08-21] MEDS ORDERED: HYDR-3965 PO ×3 (10:36→10:53)
[2023-08-21 10:45] VITALS: BP 217/108; PULSE 62; RESP 16; O2SAT 99
== END 2023-08-21 10:48 | disposition home or self-care (01) ==
LOC: ER 03:53
DX: M25.512 Pain in left shoulder (principal); I48.91 Unspecified atrial fibrillation; I25.10 Atherosclerotic heart disease of native coronary artery without angina pectoris; I10 Essential (primary) hypertension; Z72.89 Other problems related to lifestyle; Z79.82 Long term (current) use of aspirin; Z79.899 Other long term (current) drug therapy; W19.XXXA Unspecified fall, initial encounter; Y93.89 Activity, other specified; Y92.89 Other specified places as the place of occurrence of the external cause; Y99.8 Other external cause status
CPT/HCPCS: 73030; 73080; 99284

== ENCOUNTER 2024-06-27 12:58 | Inpatient (IN) | payer MEDICARE ==
[~2024-06-27] VITALS: Ht 193 cm; Wt 136.6 kg
[~2024-06-27 12:58] MED LIST changes: +HYDR-3965 PO
[2024-06-27 17:21] LABS: BASOPHILS # (AUTO) 0.1 X10'3 (0-0.2); BASOPHILS % (AUTO) 0.6 % (0-1); EOSINOPHILS # (AUTO) 0.2 X10'3 (0-0.9); EOSINOPHILS % (AUTO) 1.8 % (0-6); HEMOGLOBIN 15.1 g/dl (14.0-17.9); LYMPHOCYTES # (AUTO) 2.1 X10'3 (1.1-4.8); LYMPHOCYTES % (AUTO) 23.2 % (21-51); MEAN CORPUSCULAR HEMOGLOBIN 31.7 PG (27.0-31.0); MEAN CORPUSCULAR HGB CONC 34.4 g/dL (33.0-36.5); MEAN CORPUSCULAR VOLUME 92.3 FL (78-98); MEAN PLATELET VOLUME 8.4 FL (7.4-10.4); MONOCYTES # (AUTO) 0.7 X10'3 (0-0.9); NEUTROPHILS % (AUTO) 66.4 % (42-75); PLATELET COUNT 163 X10'3 (140-440); RED BLOOD COUNT 4.76 X10'6 (4.70-6.10); RED CELL DISTRIBUTION WIDTH 13.8 % (11.5-14.5)
[2024-06-27] MEDS: VANCOMYCIN 1,500MG inj. 1,500 MG in normal saline 500ml IV soln 300 ML IV STA (17:27)
[2024-06-27] MEDS: LIDOcaine 1% W/epiNEPHrine 1:100,000 20ml vial SQ ONE (17:27)
[2024-06-27 17:39] LABS: ALANINE AMINOTRANSFERASE 44 U/L (12-78); ALBUMIN 3.7 G/DL (3.4-5.0); ALBUMIN/GLOBULIN RATIO 0.9 (1.1-1.5); ALKALINE PHOSPHATASE 115 IU/L (46-116); ANION GAP 8 (8-16); ASPARTATE AMINO TRANSFERASE 40 U/L (10-37); BILIRUBIN,TOTAL 1.6 MG/DL (0.1-1.0); BLOOD UREA NITROGEN 19 MG/DL (7-18); BUN/CREATININE RATIO 14.1 (10.0-20.0); CALCIUM 8.5 MG/DL (8.5-10.1); CHLORIDE 101 MMOL/L (99-107); CREATININE 1.35 MG/DL (0.60-1.10); GLUCOSE 107 MG/DL (70-104); POTASSIUM 3.8 MMOL/L (3.5-5.1); SODIUM 136 MMOL/L (135-145); TOTAL CARBON DIOXIDE 27.5 MMOL/L (24-32); TOTAL PROTEIN 7.9 G/DL (6.4-8.2); eCRCL 61 ML/MIN; eGFR 52 ML/MIN
[2024-06-27] MEDS ORDERED: CLON0.1T2 PO (17:41)
[2024-06-27] MEDS ORDERED: HYDR12.55 PO (17:41)
[2024-06-27] MEDS ORDERED: METH-798 PO (17:41)
[2024-06-27] MEDS ORDERED: IBUP-1986 PO (17:41)
[2024-06-27] MEDS ORDERED: BUPR150T8 PO (17:41)
[2024-06-27] MEDS ORDERED: LISI20TA28 PO (17:41)
[2024-06-27] MEDS ORDERED: magnesium sulf-water 4G/100mL 100 ML IV PRN (18:10)
[2024-06-27] MEDS ORDERED: ondansetron/PF 4mg/2ml inj IV PRN (18:10)
[2024-06-27] MEDS ORDERED: morphine 2 MG/ML inj. syringe IV PRN ×2 (18:10)
[2024-06-27] MEDS ORDERED: magnesium sulf-water 2g/50mL 50 ML IV PRN (18:10)
[2024-06-27] MEDS ORDERED: mag hydrox/Alum hydrox/simeth 30ml oral suspension PO PRN (18:10)
[2024-06-27] MEDS ORDERED: potassium Cl 40MEQ/1/2NS 520ml 520 ML IV PRN (18:10)
[2024-06-27] MEDS ORDERED: acetaminophen 325mg tablet PO PRN (18:10)
[2024-06-27] MEDS ORDERED: magnesium Cl slow-release 64mg tablet PO PRN (18:10)
[2024-06-27] MEDS ORDERED: magnesium hydroxide 30ml (MOM) UD suspension PO PRN (18:10)
[2024-06-27] MEDS ORDERED: potassium Cl 20 mEq SR tablet PO PRN ×2 (18:10)
[2024-06-27] MEDS: normal saline 1000ml 1,000 ML IV SCH (18:33)
[2024-06-27] MEDS ORDERED: cloNIDine 0.1 mg tablet PO PRN (18:55)
[2024-06-27] MEDS ORDERED: vancomycin inj 500 MG in normal saline 100ml IV soln 100 ML IV SCH (20:00)
[2024-06-27] MEDS: K and/or MAG REPLACEMENT MC SCH (20:00)
[2024-06-27] MEDS: docusate sod 100mg capsule PO SCH (20:00)
[2024-06-27] MEDS ORDERED: VANCOMYCIN 500MG/WATER FOR INJ (PEG) PREMIX 100 ML IV SCH (20:00)
[2024-06-27] MEDS: lisinopril 10 MG tablet PO ONE (20:23)
[2024-06-27] MEDS: HYDROcodone/acetaminophen 5mg/325mg tablet PO PRN (20:32)
[2024-06-27 20:56] VITALS: PULSE 77; RESP 18; O2SAT 77
[2024-06-28] VITALS (11 sets, daily range): BP systolic 114–162; BP diastolic 65–85; PULSE 56–71; RESP 15–22; TEMP 97.7–98.1; O2SAT 95–98
[2024-06-28] MEDS: heparin, porcine 5000 units/ml vial SQ SCH (00:29)
[2024-06-28] MEDS: piperacillin/tazo 3.375gm/50ml 50 ML IV SCH (00:37)
[2024-06-28] MEDS: HYDROcodone/acetaminophen 10/325mg tab PO PRN (05:12)
[2024-06-28] MEDS: VANCOMYCIN 1GM 200ML H20 (PEG) 200 ML IV SCH (05:12)
[2024-06-28 07:16] LABS: BASOPHILS % (AUTO) 0.6 % (0-1); EOSINOPHILS # (AUTO) 0.2 X10'3 (0-0.9); EOSINOPHILS % (AUTO) 2.2 % (0-6); HEMATOCRIT 37.9 % (42.0-52.0); HEMOGLOBIN 13.1 g/dl (14.0-17.9); LYMPHOCYTES # (AUTO) 1.6 X10'3 (1.1-4.8); LYMPHOCYTES % (AUTO) 21.8 % (21-51); MEAN CORPUSCULAR HEMOGLOBIN 31.7 PG (27.0-31.0); MEAN CORPUSCULAR HGB CONC 34.6 g/dL (33.0-36.5); MEAN CORPUSCULAR VOLUME 91.5 FL (78-98); MEAN PLATELET VOLUME 8.8 FL (7.4-10.4); MONOCYTES # (AUTO) 0.7 X10'3 (0-0.9); MONOCYTES % (AUTO) 8.9 % (2-12); NEUTROPHILS # (AUTO) 4.9 X10'3 (1.8-7.7); NEUTROPHILS % (AUTO) 66.5 % (42-75); PLATELET COUNT 142 X10'3 (140-440); RED BLOOD COUNT 4.14 X10'6 (4.70-6.10); RED CELL DISTRIBUTION WIDTH 13.5 % (11.5-14.5); WHITE BLOOD COUNT 7.4 X10'3 (4.5-11.0)
[2024-06-28 07:23] LABS: APTT 26 SECONDS (22-32); PROTHROMBIN TIME 10.3 SECONDS (9.0-12.0)
[2024-06-28] MEDS: HYDROchlorothiazide 12.5mg capsule PO SCH (07:23)
[2024-06-28] MEDS: lisinopril 20mg tablet PO SCH (07:24)
[2024-06-28 07:36] LABS: ALANINE AMINOTRANSFERASE 43 U/L (12-78); ALBUMIN 2.9 G/DL (3.4-5.0); ALBUMIN/GLOBULIN RATIO 0.8 (1.1-1.5); ALKALINE PHOSPHATASE 97 IU/L (46-116); ANION GAP 7 (8-16); ASPARTATE AMINO TRANSFERASE 37 U/L (10-37); BILIRUBIN,TOTAL 2.1 MG/DL (0.1-1.0); BLOOD UREA NITROGEN 17 MG/DL (7-18); CALCIUM 7.7 MG/DL (8.5-10.1); CHLORIDE 101 MMOL/L (99-107); CHOL/HDL RATIO 3.8 (0.00-4.99); CHOLESTEROL 165 MG/DL (0-200); CREATININE 1.31 MG/DL (0.60-1.10); GLUCOSE 154 MG/DL (70-104); HDL CHOLESTEROL 43 MG/DL (35-60); LDL CHOLESTEROL 108 MG/DL (50-100); PHOSPHORUS 2.9 MG/DL (2.3-4.5); POTASSIUM 3.5 MMOL/L (3.5-5.1); SODIUM 135 MMOL/L (135-145); TOTAL CARBON DIOXIDE 26.6 MMOL/L (24-32); TOTAL PROTEIN 6.5 G/DL (6.4-8.2); TRIGLYCERIDES 116 MG/DL (20-135); eCRCL 63 ML/MIN; eGFR 54 ML/MIN
[2024-06-28 08:27] LABS: HEMOGLOBIN A1C 5.9 % (4.5-6.2)
[2024-06-28] MEDS: nystatin 15 GM powder TP SCH (13:14)
[2024-06-28] MEDS: linezolid 600mg/300ml PREMIX 300 ML IV SCH (13:14)
[2024-06-28] MEDS: FLU VACC TS2024-25(6MOS UP)/PF 45 MCG/0.5 ML SYRINGE IMVAC ONE (16:15)
[2024-06-28 16:36] LABS: BILIRUBIN,URINE NEGATIVE (Neg); CLARITY,URINE CLEAR (Clear); COLOR,URINE YELLOW (Yellow); GLUCOSE, URINE NEGATIVE (Neg); KETONES,URINE NEGATIVE (Neg); LEUKOCYTE ESTERASE ,URINE NEGATIVE (Neg); NITRITES, URINE NEGATIVE (Neg); OCCULT BLOOD,URINE NEGATIVE (Neg); PH,URINE 5.5 (4.8-8.0); PROTEIN,URINE NEGATIVE (Neg); UROBILINOGEN,URINE 0.2 E.U/dL (0.2-1.0)
[2024-06-28 16:48] LABS: UA COLLECTION TYPE NON-SPECIFIED
[2024-06-28 16:49] LABS: URINE AMPHETAMINE SCREEN NEGATIVE (Neg); URINE BARBITUATE SCREEN NEGATIVE (Neg); URINE BENZODIAZEPINES SCREEN NEGATIVE (Neg); URINE CANNABINOID SCREEN POSITIVE (Neg); URINE COCAINE SCREEN NEGATIVE (Neg); URINE METHADONE SCREEN NEGATIVE (Neg); URINE OPIATE SCREEN POSITIVE (Neg); URINE PHENCYCLIDINE SCREEN NEGATIVE (Neg)
[2024-06-29] VITALS (8 sets, daily range): BP systolic 115–153; BP diastolic 53–81; PULSE 54–57; RESP 14–20; TEMP 97.1–99.3; O2SAT 94–97
[2024-06-29] MEDS ORDERED: VANCOMYCIN LEVEL IV ONE (04:30)
[2024-06-29 07:45] LABS: BASOPHILS % (AUTO) 0.6 % (0-1); EOSINOPHILS # (AUTO) 0.2 X10'3 (0-0.9); EOSINOPHILS % (AUTO) 4.5 % (0-6); HEMATOCRIT 39.5 % (42.0-52.0); HEMOGLOBIN 13.8 g/dl (14.0-17.9); LYMPHOCYTES # (AUTO) 1.4 X10'3 (1.1-4.8); LYMPHOCYTES % (AUTO) 31.1 % (21-51); MEAN CORPUSCULAR HEMOGLOBIN 31.9 PG (27.0-31.0); MEAN CORPUSCULAR VOLUME 91.2 FL (78-98); MEAN PLATELET VOLUME 8.6 FL (7.4-10.4); MONOCYTES # (AUTO) 0.5 X10'3 (0-0.9); MONOCYTES % (AUTO) 11.1 % (2-12); NEUTROPHILS # (AUTO) 2.3 X10'3 (1.8-7.7); NEUTROPHILS % (AUTO) 52.7 % (42-75); PLATELET COUNT 138 X10'3 (140-440); RED BLOOD COUNT 4.33 X10'6 (4.70-6.10); RED CELL DISTRIBUTION WIDTH 13.2 % (11.5-14.5); WHITE BLOOD COUNT 4.5 X10'3 (4.5-11.0)
[2024-06-29 07:48] LABS: ALANINE AMINOTRANSFERASE 47 U/L (12-78); ALBUMIN 2.9 G/DL (3.4-5.0); ALBUMIN/GLOBULIN RATIO 0.8 (1.1-1.5); ALKALINE PHOSPHATASE 94 IU/L (46-116); ANION GAP 5 (8-16); ASPARTATE AMINO TRANSFERASE 32 U/L (10-37); BILIRUBIN,TOTAL 1.5 MG/DL (0.1-1.0); BLOOD UREA NITROGEN 14 MG/DL (7-18); BUN/CREATININE RATIO 12.2 (10.0-20.0); CALCIUM 8.1 MG/DL (8.5-10.1); CHLORIDE 102 MMOL/L (99-107); CREATININE 1.15 MG/DL (0.60-1.10); GLUCOSE 109 MG/DL (70-104); MAGNESIUM 1.9 MG/DL (1.5-2.4); PHOSPHORUS 2.9 MG/DL (2.3-4.5); POTASSIUM 3.9 MMOL/L (3.5-5.1); SODIUM 135 MMOL/L (135-145); TOTAL PROTEIN 6.7 G/DL (6.4-8.2); eCRCL 71 ML/MIN; eGFR 63 ML/MIN
[2024-06-29 07:50] LABS: APTT 27 SECONDS (22-32); PROTHROMBIN TIME 10.4 SECONDS (9.0-12.0)
[2024-06-29] MEDS: atorvastatin 20mg tablet PO SCH (08:19)
[2024-06-29] MEDS: lactobacillus rhamnosus 10,000 MMU CELLS/CAPSULE PO SCH (08:21)
[2024-06-29] MEDS ORDERED: LINE600T14 PO (12:35)
[2024-06-29] MEDS ORDERED: LACT1CAP26 PO (12:35)
[2024-06-29] MEDS ORDERED: ATOR20TA66 PO (12:35)
[2024-06-29] MEDS ORDERED: NYST15PO13 TOP (12:35)
[2024-06-29] MEDS ORDERED: iohexol 300mg/ml 100ml inj. ONE (16:45)
[2024-06-30] VITALS (7 sets, daily range): BP systolic 118–154; BP diastolic 65–83; PULSE 56–64; RESP 15–18; TEMP 97.1–98.2; O2SAT 97–100
[2024-06-30 07:34] LABS: BASOPHILS % (AUTO) 0.4 % (0-1); EOSINOPHILS # (AUTO) 0.2 X10'3 (0-0.9); EOSINOPHILS % (AUTO) 4.1 % (0-6); HEMATOCRIT 39.8 % (42.0-52.0); HEMOGLOBIN 13.9 g/dl (14.0-17.9); LYMPHOCYTES # (AUTO) 1.5 X10'3 (1.1-4.8); MEAN CORPUSCULAR HEMOGLOBIN 31.8 PG (27.0-31.0); MEAN CORPUSCULAR VOLUME 90.8 FL (78-98); MEAN PLATELET VOLUME 8.5 FL (7.4-10.4); MONOCYTES # (AUTO) 0.5 X10'3 (0-0.9); MONOCYTES % (AUTO) 9.7 % (2-12); NEUTROPHILS # (AUTO) 3.1 X10'3 (1.8-7.7); NEUTROPHILS % (AUTO) 57.8 % (42-75); PLATELET COUNT 168 X10'3 (140-440); RED BLOOD COUNT 4.38 X10'6 (4.70-6.10); RED CELL DISTRIBUTION WIDTH 13.5 % (11.5-14.5); WHITE BLOOD COUNT 5.4 X10'3 (4.5-11.0)
[2024-06-30 07:50] LABS: APTT 27 SECONDS (22-32); PROTHROMBIN TIME 10.3 SECONDS (9.0-12.0)
[2024-06-30 07:54] LABS: ALANINE AMINOTRANSFERASE 38 U/L (12-78); ALBUMIN 2.9 G/DL (3.4-5.0); ALBUMIN/GLOBULIN RATIO 0.7 (1.1-1.5); ALKALINE PHOSPHATASE 95 IU/L (46-116); ANION GAP 5 (8-16); ASPARTATE AMINO TRANSFERASE 19 U/L (10-37); BILIRUBIN,TOTAL 1.1 MG/DL (0.1-1.0); BLOOD UREA NITROGEN 17 MG/DL (7-18); BUN/CREATININE RATIO 13.3 (10.0-20.0); CALCIUM 8.2 MG/DL (8.5-10.1); CHLORIDE 103 MMOL/L (99-107); CREATININE 1.28 MG/DL (0.60-1.10); GLUCOSE 101 MG/DL (70-104); PHOSPHORUS 3.7 MG/DL (2.3-4.5); POTASSIUM 4.1 MMOL/L (3.5-5.1); SODIUM 137 MMOL/L (135-145); TOTAL CARBON DIOXIDE 29.2 MMOL/L (24-32); TOTAL PROTEIN 6.8 G/DL (6.4-8.2); eCRCL 64 ML/MIN; eGFR 55 ML/MIN
[2024-06-30] MEDS ORDERED: CLIN-232 PO ×2 (12:50→18:53)
[2024-06-30] MEDS: normal saline 1000ml 1,000 ML IV SCH (19:38)
[2024-06-30] MEDS ORDERED: linezolid 600mg tablet PO SCH (20:00)
[2024-06-30] MEDS: clindamycin 600mg/D5W 50ml 50 ML IV SCH (20:25)
[2024-07-01] VITALS: BP 163/73; PULSE 59; RESP 18; TEMP 98; O2SAT 97
[2024-07-01 07:30] LABS: BASOPHILS % (AUTO) 0.5 % (0-1); EOSINOPHILS # (AUTO) 0.2 X10'3 (0-0.9); EOSINOPHILS % (AUTO) 4.2 % (0-6); HEMATOCRIT 39.3 % (42.0-52.0); HEMOGLOBIN 13.9 g/dl (14.0-17.9); LYMPHOCYTES # (AUTO) 1.6 X10'3 (1.1-4.8); LYMPHOCYTES % (AUTO) 34.2 % (21-51); MEAN CORPUSCULAR HEMOGLOBIN 32.3 PG (27.0-31.0); MEAN CORPUSCULAR HGB CONC 35.5 g/dL (33.0-36.5); MEAN CORPUSCULAR VOLUME 91.2 FL (78-98); MEAN PLATELET VOLUME 8.4 FL (7.4-10.4); MONOCYTES # (AUTO) 0.4 X10'3 (0-0.9); MONOCYTES % (AUTO) 9.3 % (2-12); NEUTROPHILS # (AUTO) 2.4 X10'3 (1.8-7.7); NEUTROPHILS % (AUTO) 51.8 % (42-75); PLATELET COUNT 177 X10'3 (140-440); RED BLOOD COUNT 4.31 X10'6 (4.70-6.10); RED CELL DISTRIBUTION WIDTH 13.2 % (11.5-14.5); WHITE BLOOD COUNT 4.7 X10'3 (4.5-11.0)
[2024-07-01 07:35] LABS: PROTHROMBIN TIME 10.6 SECONDS (9.0-12.0)
[2024-07-01 07:49] LABS: ALANINE AMINOTRANSFERASE 36 U/L (12-78); ALBUMIN 3.1 G/DL (3.4-5.0); ALBUMIN/GLOBULIN RATIO 0.8 (1.1-1.5); ALKALINE PHOSPHATASE 107 IU/L (46-116); ANION GAP 3 (8-16); ASPARTATE AMINO TRANSFERASE 21 U/L (10-37); BLOOD UREA NITROGEN 17 MG/DL (7-18); BUN/CREATININE RATIO 12.7 (10.0-20.0); CALCIUM 8.3 MG/DL (8.5-10.1); CHLORIDE 102 MMOL/L (99-107); CREATININE 1.34 MG/DL (0.60-1.10); GLUCOSE 104 MG/DL (70-104); MAGNESIUM 1.9 MG/DL (1.5-2.4); PHOSPHORUS 3.1 MG/DL (2.3-4.5); POTASSIUM 4.1 MMOL/L (3.5-5.1); SODIUM 135 MMOL/L (135-145); TOTAL CARBON DIOXIDE 29.6 MMOL/L (24-32); eCRCL 61 ML/MIN; eGFR 52 ML/MIN
[2024-07-01 07:57] VITALS: BP_SYST 180; PULSE 63
[2024-07-01 08:00] VITALS: RESP 18; O2SAT 97
== END 2024-07-01 14:20 | disposition home health service (06) | DRG 603 ==
LOC: ER 12:59 → ED HOLD 18:18 → PCU 3S 06-28 03:17 → ORTHO 4S 06-30 23:55
PROVIDERS: ADMIT Family Medicine; ATTEND Family Medicine
PROC: 0Y9D0ZZ Drainage of Left Upper Leg, Open Approach (ICD-10-PCS; principal; 2024-06-27)
DX: L03.116 Cellulitis of left lower limb (principal); N17.9 Acute kidney failure, unspecified; L02.416 Cutaneous abscess of left lower limb; F10.90 Alcohol use, unspecified, uncomplicated; I25.10 Atherosclerotic heart disease of native coronary artery without angina pectoris; R73.03 Prediabetes; E78.5 Hyperlipidemia, unspecified; I48.91 Unspecified atrial fibrillation; I10 Essential (primary) hypertension; G89.29 Other chronic pain; M54.89 Other dorsalgia; G47.33 Obstructive sleep apnea (adult) (pediatric); Z79.82 Long term (current) use of aspirin; Z79.899 Other long term (current) drug therapy
CPT/HCPCS: 36415; 71045; 73700; 73701; 80053; 80061; 80305; 81003; 82948; 83036; 83605; 83735; 84100; 84145; 85025; 85610; 85730; 87040; 87070; 87075; 87077; 87081; 87186; 90686; 93005; 94660; 94760; 96365; 97161; 97530; 99285; A6213; A6253; A6266; A6407; A6446; A6449; G0378; J1644; J2020; J2543; J3370; J3372; J3490; J7030; J7040; Q9967

== ENCOUNTER 2024-08-15 10:33 | Emergency (ER) | payer MEDICARE ==
[~2024-08-15] VITALS: Ht 193 cm; Wt 135.8 kg
[~2024-08-15 10:33] MED LIST changes: -APIX5TAB3 PO; -ASPI-611 PO; -CARCD120C PO; +CLIN-232 PO; +CLON0.1T2 PO; -HYDR-3965 PO; +HYDR12.55 PO; +IBUP-1986 PO; +LACT1CAP26 PO; -LISI1TAB51 PO; +LISI20TA28 PO; -MECL-302 PO; +METH-798 PO; +NYST15PO13 TOP
[2024-08-15 10:49] VITALS: TEMP 98.1
[2024-08-15 11:35] LABS: BASOPHILS % (AUTO) 0.6 % (0-1); EOSINOPHILS % (AUTO) 0 % (0-6); HEMATOCRIT 41.5 % (42.0-52.0); HEMOGLOBIN 14.5 g/dl (14.0-17.9); LYMPHOCYTES # (AUTO) 1.2 X10'3 (1.1-4.8); LYMPHOCYTES % (AUTO) 19.8 % (21-51); MEAN CORPUSCULAR HEMOGLOBIN 31.5 PG (27.0-31.0); MEAN CORPUSCULAR HGB CONC 34.9 g/dL (33.0-36.5); MEAN CORPUSCULAR VOLUME 90.3 FL (78-98); MEAN PLATELET VOLUME 8.6 FL (7.4-10.4); MONOCYTES # (AUTO) 0.6 X10'3 (0-0.9); MONOCYTES % (AUTO) 10.9 % (2-12); NEUTROPHILS % (AUTO) 68.7 % (42-75); PLATELET COUNT 123 X10'3 (140-440); RED CELL DISTRIBUTION WIDTH 13.6 % (11.5-14.5); WHITE BLOOD COUNT 5.8 X10'3 (4.5-11.0)
[2024-08-15 11:48] LABS: ALBUMIN 3.8 G/DL (3.4-5.0); ANION GAP 13 (8-16); BLOOD UREA NITROGEN 16 MG/DL (7-18); BUN/CREATININE RATIO 12.9 (10.0-20.0); CALCIUM 8.6 MG/DL (8.5-10.1); CHLORIDE 101 MMOL/L (99-107); CREATININE 1.24 MG/DL (0.60-1.10); GLUCOSE 138 MG/DL (70-104); POTASSIUM 3.1 MMOL/L (3.5-5.1); SODIUM 135 MMOL/L (135-145); eCRCL 66 ML/MIN; eGFR 57 ML/MIN
[2024-08-15 14:47] VITALS: BP 154/98; PULSE 64; RESP 18; O2SAT 93
== END 2024-08-15 14:52 | disposition home or self-care (01) ==
LOC: ER 10:34
DX: J11.1 Influenza due to unidentified influenza virus with other respiratory manifestations (principal); R47.89 Other speech disturbances; R53.1 Weakness; I48.91 Unspecified atrial fibrillation; I25.10 Atherosclerotic heart disease of native coronary artery without angina pectoris; I10 Essential (primary) hypertension; Z72.89 Other problems related to lifestyle; Z79.1 Long term (current) use of non-steroidal anti-inflammatories (NSAID); Z79.899 Other long term (current) drug therapy; Z20.822 Contact with and (suspected) exposure to COVID-19; W06.XXXA Fall from bed, initial encounter; Y93.89 Activity, other specified; Y92.89 Other specified places as the place of occurrence of the external cause; Y99.8 Other external cause status
CPT/HCPCS: 36415; 70450; 71045; 80048; 82948; 84145; 85025; 87502; 87503; 87811; 93005; 96372; 99285